=== PATIENT | male | born 1965 | race Two or more races ===

== ENCOUNTER 2017-09-14 21:39 | Emergency (ER) | payer OTHER ==
[~2017-09-14] VITALS: Ht 175.3 cm; Wt 83.5 kg
[2017-09-14 21:44] VITALS: Ht 175.3 cm; Wt 83.5 kg
[2017-09-14 23:19] VITALS: BP 135/86
== END 2017-09-14 23:19 | disposition home or self-care (01) ==
LOC: ED 21:39
DX: S61.011A Laceration without foreign body of right thumb without damage to nail, initial encounter (principal); X58.XXXA Exposure to other specified factors, initial encounter; Y93.89 Activity, other specified; Y92.89 Other specified places as the place of occurrence of the external cause; Y99.8 Other external cause status
CPT/HCPCS: 90715; J2001

== ENCOUNTER 2017-09-16 18:11 | Emergency (ER) | payer OTHER ==
[~2017-09-16] VITALS: Ht 170.2 cm; Wt 75.3 kg
[2017-09-16 18:13] VITALS: Ht 170.2 cm; Wt 75.3 kg
[2017-09-16 18:32] VITALS: BP 143/85
== END 2017-09-16 18:32 | disposition home or self-care (01) ==
LOC: ED 18:11
DX: S61.011D Laceration without foreign body of right thumb without damage to nail, subsequent encounter (principal); X58.XXXD Exposure to other specified factors, subsequent encounter

== ENCOUNTER 2017-09-24 10:31 | Emergency (ER) | payer OTHER ==
[~2017-09-24] VITALS: Ht 175.3 cm; Wt 75.3 kg
[2017-09-24 10:54] VITALS: BP 131/78; Ht 175.3 cm; Wt 75.3 kg
== END 2017-09-24 13:08 | disposition home or self-care (01) ==
LOC: ED 10:31
DX: S61.011D Laceration without foreign body of right thumb without damage to nail, subsequent encounter (principal); X58.XXXD Exposure to other specified factors, subsequent encounter